=== PATIENT | female | born 1990 | race Caucasian/White ===

== ENCOUNTER → 2020-01-22 18:56 | Outpatient (ROUT) | payer BC, SELFPAY ==
[2020-01-22 20:38] LABS: Urine N gonorrhoeae NOT DETECTED
[2020-01-22 20:41] LABS: Urine Chlamydia NOT DETECTED
== END ==
PROVIDERS: PCP Family Medicine; Visit Provider Obstetrics & Gynecology
DX: Z11.3 Encounter for screening for infections with a predominantly sexual mode of transmission (principal)
CPT/HCPCS: 87491; 87591

== ENCOUNTER → 2020-02-19 12:59 | Outpatient (CLI) | payer BC, SELFPAY ==
[2020-02-19 13:49] LABS: Add Manual Diff / Slide Review NO; Basophils Absolute Auto 100 /uL (0-100); Basophils Percent Auto 0.7 % (0-2); Eosinophils Absolute Auto 100 /uL (0-450); Eosinophils Percent Auto 0.6 % (2-4); Hematocrit 34.5 % (36-46); Hemoglobin 11.8 g/dL (12.0-16.0); Lymphocytes Absolute Auto 2500 /uL (1100-4500); Lymphocytes Percent Auto 21.8 % (25-40); Mean Corpuscular HGB Conc 34.2 % (30-36); Mean Corpuscular Hemoglobin 31.1 PG (26-34); Monocytes Absolute Auto 800 /uL (0-900); Neutrophils Absolute Auto 8100 /uL (1500-7000); Neutrophils Percent Auto 69.9 % (50-75); Platelet Count 362 X10^3/uL (150-400); Red Cell Distribution Width 12.9 % (11.6-14.8); White Blood Cell Count 11.6 X10^3/uL (4.5-11.0)
[2020-02-19 15:00] LABS: Appearance Urine UA CLEAR; Bilirubin Urine UA NEGATIVE (NEGATIVE); Color Urine UA YELLOW; Glucose Urine UA NEGATIVE (Negative); Ketones Urine UA 1+ (NEGATIVE); Leukocyte Esterase Urine UA NEGATIVE (NEGATIVE); Nitrite Urine UA NEGATIVE (Negative); Occult Blood Urine UA NEGATIVE (Negative); Protein Urine UA NEGATIVE (Negative); Urobilinogen Urine UA 0.2 E.U./dL (0.2)
[2020-02-19 17:54] LABS: Hepatitis B Surface Antigen NEGATIVE s/c (NEGATIVE); Rubella Antibody IgG 13.1 IU/mL (>15)
[2020-02-19 18:00] LABS: HIV 1 & 2 Ab/Ag 4th Gen Combo NEGATIVE (NEGATIVE); Hep C Virus Ab w/Reflex Quant NEGATIVE s/c (NEGATIVE)
[2020-02-20 04:36] LABS: RPR Screen Non Reactive (Non Reactive)
[2020-02-20 10:08] LABS: Varicella IgG Antibody 1560 index (Immune >165)
== END ==
PROVIDERS: PCP Family Medicine; Referring Provider Obstetrics & Gynecology; Visit Provider Obstetrics & Gynecology
DX: Z34.01 Encounter for supervision of normal first pregnancy, first trimester (principal)
CPT/HCPCS: 36415; 80055; 81003; 86787; 86803; 86850; 86900; 86901; 87086; 87389

== ENCOUNTER → 2020-03-19 10:55 | Outpatient (CLI) | payer BC, SELFPAY ==
[2020-03-22 20:39] LABS: AFP Value 25.4 ng/mL (.); Gest Age on Col Date 16.7 weeks (.); Gestational Age Ultrasound (.); Insulin Dep Diabetes No (.); OSBR Risk 1IN 10000 (.); Results Report (.); Test Results *Screen Negative* (.)
[2020-03-25 11:46] LABS: PDF SEE EMR
== END ==
PROVIDERS: Referring Provider Obstetrics & Gynecology; Visit Provider Obstetrics & Gynecology
DX: Z34.02 Encounter for supervision of normal first pregnancy, second trimester (principal); Z3A.16 16 weeks gestation of pregnancy
CPT/HCPCS: 36415; 82105

== ENCOUNTER → 2020-04-16 12:03 | Outpatient (CLI) | payer BC, SELFPAY ==
--- NOTE | 2020-04-16 12:04 | DI.US.S_ITS ---
PROCEDURE: US OB >= 14 WEEKS FETUS INDICATIONS: ANATOMY SCAN OUTSIDE/PRIOR DATING DATA: Last menstrual period (LMP): 11/23/2019. LMP-based estimated date of delivery (DIANE): 08/29/2020. First dating scan (date and location): 01/22/2020 Located within [facility]. Estimated date of delivery (DIANE) from first dating scan: 08/31/2020. TECHNIQUE: Real-time scanning was performed of the fetus, with image documentation and biometric measurements. Endovaginal scanning: Not performed. COMPARISON: [facility], , OB <= 14 WEEKS FETUS, 02/19/2020, 11:52. FINDINGS: General: A single living intrauterine gestation is present. Presentation: Breech. Placenta: Placental position is anterior, without previa. Amniotic fluid index: 9.2 cm, normal range is 5-24 cm. heart rate: 157 beats per minute. Maternal cervical canal: 4.7 cm long. Normal lower limit is 2.5 cm. biometrics: Biparietal diameter: 4.67 cm, 20 weeks 1 day Head circumference: 17.8 cm, 20 weeks 2 days Abdominal circumference: 13.5 cm, 19 weeks 0 days Femur length: 3.54 cm, 21 weeks 1 day Estimated gestational age from initial scan: 20 weeks 3 days Composite gestational age from present scan: 20 weeks 1 day Estimated weight and percentile: 329 g, 26 percentile Measurement variability for biometric dating: +/- 7 days from 14 weeks to 15 weeks 6 days gestation, +/- 10 days from 16 weeks to 21 weeks 6 days gestation, +/- 2 weeks from 22 weeks to 27 weeks 6 days gestation, +/- 3 weeks for 28 weeks gestation or later. weight reference: 4500 g or EFW >90/95% is considered macrosomia or large for gestational age. EFW <10% is small for gestational age. EFW 5% or less is considered intra-uterine growth restriction. Anatomic survey: Neuro: Ventricles are non-dilated at less than 10 mm. Cisterna magna is normal at 3-11 mm. Cerebellum is normal in size and morphology. Nuchal skin fold: Normal at less than 6 mm between 14-21 weeks gestational age. Face: Nose and lips, facial profile are normal. Spine: No evidence for spina bifida. Heart: 4-chambered heart is present, with normal ventricular outflow tracts. Diaphragm: Diaphragm is intact. Stomach: Left-sided stomach is present. Kidneys: No hydronephrosis. Normal is less than 5 mm in 2nd trimester, less than 7 mm in 3rd trimester. Cord: 3-vessel cord has orthotopic insertion. Bladder: Normal in size. Extremities: All 4 extremities identified. IMPRESSION: 1. Mena living intrauterine at 20 weeks 1 day based on today's ultrasound. This is concordant with the prior ultrasound. There is expected interval growth. 2. Normal placenta and amniotic fluid. 3. Normal and complete anatomic survey. Dictated by: Tawanda Arteaga M.D. on 04/16/2020 at 15:39 Approved by: Tawanda Arteaga M.D. on 04/16/2020 at 15:54
== END ==
PROVIDERS: PCP Obstetrics & Gynecology; Referring Provider Obstetrics & Gynecology; Visit Provider Obstetrics & Gynecology
DX: Z34.02 Encounter for supervision of normal first pregnancy, second trimester (principal); Z3A.20 20 weeks gestation of pregnancy
CPT/HCPCS: 76811

== ENCOUNTER → 2020-05-14 12:04 | Outpatient (CLI) | payer BC, SELFPAY ==
[2020-05-14 14:14] LABS: Urine N gonorrhoeae NOT DETECTED
[2020-05-14 14:19] LABS: Urine Chlamydia NOT DETECTED
== END ==
PROVIDERS: PCP Family Medicine; Visit Provider Obstetrics & Gynecology
DX: Z34.02 Encounter for supervision of normal first pregnancy, second trimester (principal); Z3A.24 24 weeks gestation of pregnancy
CPT/HCPCS: 87491; 87591

== ENCOUNTER → 2020-06-11 09:41 | Outpatient (CLI) | payer BC, SELFPAY ==
[2020-06-11 11:26] LABS: Hematocrit 34.8 % (36-46); Hemoglobin 11.6 g/dL (12.0-16.0)
[2020-06-11 11:50] LABS: GTT (PREG) 1 Hour PP 50gm Dose 113 mg/dL (76-139)
[2020-06-12 04:08] LABS: Toxoplasma IgG Interp Negative (.); Toxoplasma gohndii IgG <3.0 IU/mL (0.0-7.1)
[2020-06-12 06:10] LABS: HSV Type 1 AB, IgG <0.91 index (0.00-0.90); Toxoplasma gohndii IgG <3.0 IU/mL (0.0-7.1); Toxoplasma gondii IgM <3.0 AU/mL (0.0-7.9)
[2020-06-12 20:08] LABS: HSV I/II IgM <0.91 Ratio (0.00-0.90)
== END ==
PROVIDERS: PCP Family Medicine; Referring Provider Obstetrics & Gynecology; Visit Provider Obstetrics & Gynecology
DX: O35.0XX0 Maternal care for (suspected) central nervous system malformation in fetus, not applicable or unspecified (principal); Z3A.24 24 weeks gestation of pregnancy
CPT/HCPCS: 36415; 82950; 85014; 85018; 86644; 86645; 86694; 86695; 86777; 86778

== ENCOUNTER 2020-07-14 12:03 | Outpatient (CLI) | payer BC, SELFPAY ==
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
== END 2020-07-14 13:00 | disposition home or self-care (01) ==
LOC: LABOR 12:14 → OB 07-15 09:02
PROVIDERS: PCP Family Medicine; Referring Provider Obstetrics & Gynecology; Visit Provider Obstetrics & Gynecology
DX: O36.5930 Maternal care for other known or suspected poor fetal growth, third trimester, not applicable or unspecified (principal); Z3A.33 33 weeks gestation of pregnancy
CPT/HCPCS: 59025; G0378; G0379

== ENCOUNTER 2020-07-21 10:52 | Outpatient (CLI) | payer BC, SELFPAY | END 2020-07-21 11:55 | disposition home or self-care (01) | LOC: LABOR 11:22 → OB 15:30 | PROVIDERS: PCP Family Medicine; Referring Provider Obstetrics & Gynecology; Visit Provider Obstetrics & Gynecology | DX: O36.5930 Maternal care for other known or suspected poor fetal growth, third trimester, not applicable or unspecified (principal); Z3A.34 34 weeks gestation of pregnancy | CPT/HCPCS: 59025; G0378; G0379 ==

== ENCOUNTER → 2020-07-29 16:43 | Outpatient (CLI) | payer BC, SELFPAY ==
[2020-07-30 11:14] LABS: Strep Grp B PCR POS for Grp B Strep
== END ==
PROVIDERS: PCP Family Medicine; Visit Provider Obstetrics & Gynecology
DX: Z34.90 Encounter for supervision of normal pregnancy, unspecified, unspecified trimester (principal); Z3A.35 35 weeks gestation of pregnancy
CPT/HCPCS: 87653

== ENCOUNTER 2020-08-01 10:42 | Outpatient (CLI) | payer BC, SELFPAY | END 2020-08-01 11:12 | disposition home or self-care (01) | LOC: LABOR 11:02 → OB 12:32 | PROVIDERS: PCP Family Medicine; Referring Provider Obstetrics & Gynecology; Visit Provider Obstetrics & Gynecology | DX: O36.5930 Maternal care for other known or suspected poor fetal growth, third trimester, not applicable or unspecified (principal); Z3A.36 36 weeks gestation of pregnancy | CPT/HCPCS: 59025; G0378; G0379 ==

== ENCOUNTER 2020-08-04 11:38 | Outpatient (CLI) | payer BC, SELFPAY | END 2020-08-04 12:18 | disposition home or self-care (01) | LOC: LABOR 12:17 → OB 08-05 07:46 | PROVIDERS: PCP Family Medicine; Referring Provider Obstetrics & Gynecology; Visit Provider Obstetrics & Gynecology | DX: O36.5930 Maternal care for other known or suspected poor fetal growth, third trimester, not applicable or unspecified (principal); Z3A.36 36 weeks gestation of pregnancy | CPT/HCPCS: 59025; G0378; G0379 ==

== ENCOUNTER 2020-08-12 12:45 | Outpatient (CLI) | payer BC, SELFPAY | END 2020-08-12 13:10 | disposition home or self-care (01) | LOC: LABOR 12:48 → OB 08-13 07:35 | PROVIDERS: PCP Family Medicine; Referring Provider Obstetrics & Gynecology; Visit Provider Obstetrics & Gynecology | DX: O36.5930 Maternal care for other known or suspected poor fetal growth, third trimester, not applicable or unspecified (principal); Z3A.37 37 weeks gestation of pregnancy | CPT/HCPCS: 59025; G0378; G0379 ==

== ENCOUNTER 2020-08-19 11:28 | Outpatient (CLI) | payer BC, SELFPAY | END 2020-08-19 12:28 | disposition home or self-care (01) | LOC: OB 08-20 08:23 | PROVIDERS: PCP Family Medicine; Referring Provider Obstetrics & Gynecology; Visit Provider Obstetrics & Gynecology | DX: O36.5930 Maternal care for other known or suspected poor fetal growth, third trimester, not applicable or unspecified (principal); Z3A.38 38 weeks gestation of pregnancy | CPT/HCPCS: 59025; G0378; G0379 ==

== ENCOUNTER 2020-08-20 18:54 | Inpatient (IN) | payer BC, SELFPAY ==
[2020-08-20] MEDS: DINOPROSTONE VAG (CERVIDIL) 10 MG VAG (19:45)
[2020-08-20 19:47] LABS: Add Manual Diff / Slide Review NO; Basophils Absolute Auto 100 /uL (0-100); Basophils Percent Auto 0.8 % (0-2); Eosinophils Absolute Auto 0 /uL (0-450); Eosinophils Percent Auto 0.3 % (2-4); Hematocrit 32.6 % (36-46); Lymphocytes Absolute Auto 2500 /uL (1100-4500); Lymphocytes Percent Auto 22.9 % (25-40); Mean Corpuscular HGB Conc 33.9 % (30-36); Mean Corpuscular Hemoglobin 29.6 PG (26-34); Mean Corpuscular Volume 87.4 fL (80-100); Monocytes Absolute Auto 900 /uL (0-900); Monocytes Percent Auto 8.1 % (3-14); Neutrophils Absolute Auto 7600 /uL (1500-7000); Neutrophils Percent Auto 67.9 % (50-75); Platelet Count 350 X10^3/uL (150-400); Red Blood Cell Count 3.73 X10^6/uL (4.0-5.2); Red Cell Distribution Width 14.7 % (11.6-14.8); White Blood Cell Count 11.1 X10^3/uL (4.5-11.0)
[2020-08-20 20:04] LABS: COVID19 -Nasal RAPID Negative (Negative)
[2020-08-20 21:46] VITALS: BP 139/82
[2020-08-20] MEDS: ZOLPIDEM 5 MG TABLET PO (23:28)
[2020-08-20] MEDS: CALCIUM CARBONATE 500 MG TAB 1000 MG PO (23:28)
[2020-08-21] MEDS: LACTATED RINGERS 1,000 ML 100 ML IV ×3 (08:52→23:06)
[2020-08-21] MEDS: PENICILLIN G POTASSIUM 5,000,000 UNIT in DEXTROSE 5% IN WATER 250 ML IV (08:52)
[2020-08-21] MEDS: OXYTOCIN PREMIX 30 UNIT/500 ML PLAST..BAG IV (08:53)
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
--- NOTE | 2020-08-21 10:30 | PM.PREOP ---
Pre-operative Note COVID-19 COVID-19 status: Negative Result date/Date tested (Pos, Neg/Pending): 08/20/20 Interval Note History & Physical reviewed/Exam performed by Physician: Yes Changes to H&P: No H&P completed within 30 days and has changed as indicated here:: 08/21/20
[2020-08-21] MEDS: CEFAZOLIN 2 GM/100 ML FROZ.PIGGY IV (10:39)
--- NOTE | 2020-08-21 10:53 | SUR.OPER ---
Supine on Padded OR bed, head on pillow, safety belt at thigh, arms secured on padded arm boards at <90 degrees abduction. Bump under right buttock. Legs uncrossed with pillow under knees, gel pad to heels, tape over blanket to lower legs.
--- NOTE | 2020-08-21 11:07 | SUR.OPER ---
Viable female baby born at 1057, delivery of placenta, cord blood tubes X2 and placenta given to Noel Church&Stanford RN. Per RT score 8-9.
[2020-08-21 11:38] VITALS: BP 90/72; PULSE 54; RESP 13; TEMP 36.8; O2SAT 100
--- NOTE | 2020-08-21 11:46 | PM.GYNOP.1 ---
Operative Date/Time/Diagnoses Date of procedure: 08/21/20 Time of procedure: 11:46 Pre-op diagnosis: EGA 39 wks Intolerance of labor IUGR Post-op diagnosis: same Procedure & Clinicians Procedure: Procedures Operation Date: 08/21/20 09:30 Actual Procedures Side Surgeon p Section Mary Granger MD Indications: 39 weeks gestation Intolerance of Labor IUGR Surgeon: Mary Granger Supervisor Hot Dip Tinning: Reba Avina Anesthesia Type: Spinal (with Duramorph) Operative Notes Findings: Live female Double nuchal cord Normal uterus, tubes and ovaries Closure Type: primary Specimen(s): other (Cord bloods, cord pH, placenta to path) Applied: catheter (To continuous drainage) Estimated blood loss (mL): 300 Blood products transfused: none Procedure in detail: The patient was taken to the operating room where she was placed in the seated position. Spinal anesthesia with Duramorph was administered. She was then placed in the dorsal supine position with a leftward tilt. She was prepped and draped in the usual sterile fashion. A timeout was performed. After spinal analgesia was found to be adequate, a Pfannenstiel skin incision was made 2 fingerbreadths above the pubic symphysis and carried through to the underlying layer fascia. The fascia was nicked in the midline, and the incision extended bilaterally with the Camacho scissors. The superior aspect of the fascial incision was grasped with a Oatman clamps, elevated, and the underlying rectus muscles dissected off sharply and bluntly. Attention was then turned to the inferior aspect of this incision which in a similar fashion was grasped with a Oatman clamps, elevated, and the underlying rectus muscles dissected off sharply and bluntly. The rectus muscles were in the midline. The peritoneum was identified, grasped between 2 hemostats, and entered sharply with the Metzenbaum scissors. This incision was extended superiorly and inferiorly with good visualization of the bladder. The bladder blade was inserted. The vesicouterine peritoneum was identified, grasped with the pickup, and entered sharply with the Metzenbaum scissors. This incision was extended bilaterally, and the bladder flap was created digitally. The bladder blade was reinserted. The lower uterine segment was incised in a transverse fashion with the scalpel. Upon entering the amniotic sac there was a small amount of clear amniotic fluid. A double nuchal cord was reduced. The infant's head was delivered without difficulty. The nose and mouth were suctioned with bulb suction. The remainder of the body delivered without difficulty. The cord was double clamped and cut. The infant was handed off to waiting RN and RT. Cord bloods were obtained. A piece of cord was sent for pH. The placenta was delivered manually. The uterus was cleared of all clots and debris. The uterine incision was repaired with #1 chromic in a running interlocking fashion, and a second layer the same suture was used for an imbricating layer. The stasis was achieved. The tubes and ovaries were examined and were found to be normal. The gutters were cleared of all clots and debris. The bladder flap was reapproximated using 2-0 Vicryl in a running fashion. The parietal peritoneum was closed using 2-0 Vicryl in a running fashion. The fascia was reapproximated using 0 Vicryl in a running fashion. Subcutaneous layer was copiously irrigated with warm normal saline. Five simple interrupted sutures of 3-0 Vicryl were placed to reapproximate the subcutaneous layer. The skin was closed with 4-0 Biosynl in a subcuticular fashion. Steri-Strips were placed. An Aquacel dressing was placed. The uterus was expressed of a small amount of old blood. Sponge, lap, and instrument counts were correct x-2. The patient tolerated the procedure well, and was taken to PACU in stable condition. Complications: none Post-operative Condition: stable Disposition: PACU Plan for aftercare: To the Center after Recovery
[2020-08-21 11:47] VITALS: BP 105/51; PULSE 59; RESP 16; O2SAT 98
[2020-08-21 11:52] VITALS: BP 113/60; PULSE 54; RESP 16; O2SAT 97
[2020-08-21 11:57] VITALS: BP 106/62; PULSE 62; RESP 17; TEMP 36.7; O2SAT 98
[2020-08-21 12:02] VITALS: BP 107/63; PULSE 56; RESP 16; O2SAT 97
[2020-08-21 12:07] VITALS: BP 107/63; PULSE 55; RESP 16; O2SAT 96
[2020-08-21] MEDS: diphenhydrAMINE 50 MG/ML VIAL 25 MG IV (14:20)
[2020-08-21] MEDS: LANOLIN OINT 7 GM 1 APPLIC TOP (14:21)
[2020-08-21] MEDS: KETOROLAC 30 MG/ML VIAL IV ×2 (18:07→23:30)
[2020-08-22] MEDS: KETOROLAC 30 MG/ML VIAL IV (05:30)
[2020-08-22 06:43] LABS: Hematocrit 27.7 % (36-46); Hemoglobin 9.3 g/dL (12.0-16.0)
[2020-08-22] MEDS: DOCUSATE 250 MG CAPSULE PO (08:14)
[2020-08-22] MEDS: PRENATAL VIT,CALC/IRON/FOLIC 1 TABLET 1 TAB PO (08:14)
[2020-08-22] MEDS: ACETAMINOPHEN 325 MG TABLET 650 MG PO ×3 (11:15→23:25)
[2020-08-22] MEDS: IBUPROFEN 600 MG TABLET PO ×3 (11:16→23:25)
[2020-08-22] MEDS: LANOLIN OINT 7 GM 1 APPLIC TOP (11:17)
[2020-08-22 16:00] VITALS: BP 127/87; PULSE 61; RESP 16; TEMP 36.5
--- NOTE | 2020-08-22 16:20 | P.PNOB_ITS ---
Subjective - OB Subjective Patient comments: no complaints, pain well controlled, tolerating diet and flatus present baby status: doing well and nursing well [place] feeding status: exclusively breast feeding Date Patient Seen: 08/22/20 Time Patient Seen: 16:20 Interval history: Patient is a 30-year-old 1 para 1 postop day # 1 status post primary low-transverse section due to intolerance of labor Exam Vital Signs (past 8 hours): Oxygen Delivery Method Room Air Oxygen Flow Rate 0 Narrative Exam Narrative: Generally: Patient is sitting up in bed, no acute distress Lungs: Clear to auscultation bilaterally Cardiovascular: Regular rate and rhythm Fundus: Firm at U -2 Incision: Clean dry and intact with Aquacel dressing Extremities: Trace edema, negative Homans Objective Labs Result Diagrams: 08/22/20 06:35 Labs: Laboratory Results - last 24 hr 08/21/20 08/22/20 11:05 06:35 Hgb 9.3 L Hct 27.7 L Cord ABG pH 7.27 Cord ABG pCO2 52.9 Cord ABG pO2 11 Cord ABG HCO3 24.1 Cord ABG Base Excess -3 Cord ABG O2 Sat 9 Cord VBG pH 7.339 Cord VBG pCO2 39.7 Cord VBG pO2 20 Cord VBG HCO3 21.3 Cord VBG Base Excess -4.00 Cord VBG O2 Sat 30 Assessment & Plan Plan day: 1 plan OB: routine postop care Time Spent With Patient Time: Total time spent is greater than 50% in coordination of care (as documented) at patient's floor/unit and/or counseling patient: Time with patient: 15-24 minutes
[2020-08-23] MEDS: IBUPROFEN 600 MG TABLET PO ×2 (05:37→11:19)
[2020-08-23] MEDS: ACETAMINOPHEN 325 MG TABLET 650 MG PO ×2 (05:37→11:19)
[2020-08-23] MEDS: PRENATAL VIT,CALC/IRON/FOLIC 1 TABLET 1 TAB PO (09:24)
[2020-08-23] MEDS: DOCUSATE 250 MG CAPSULE PO (09:24)
--- NOTE | 2020-08-23 10:57 | P.DS_ITS ---
Discharge Providers Provider Date of admission: 08/20/20 18:54 Discharge Date: 08/23/20 Primary care physician: Jeannie Cooper MD Consults: 08/21/20 13:58 Consult to Supervisor [employer] Processing Routine Comment: Discharge provider: Mary Granger MD Summary Hospital Course Date Patient Seen: 08/23/20 Time Patient Seen: 10:58 Diagnoses: Estimated gestational age of 39 weeks Intrauterine growth restriction Cervidil cervical ripening Pitocin induction of labor intolerance of labor Double nuchal cord Primary low-transverse section Hospital Course: Patient is a 30-year-old 1 para 1 who presented at an estimated gestational age of 39 weeks for Cervidil cervical ripening and Pitocin induction of labor secondary to intrauterine growth restriction. The patient received 1 dose of Cervidil on August 21, 2020. On the morning of August 22, 2020 she was started on Pitocin, due to favorable cervix. On very minimal doses of Pi tocin, 2-3 ada international units per minute, the baby had deep variable decelerations with its heart rate. A decision was made to proceed with primary low-transverse section. Peripartum Data Delivery Method: Emergency Section Laceration Description: None Episiotomy description: None Procedures: Cervidil cervical ripening Pitocin induction of labor Spinal anesthesia Primary low-transverse section complications: none Hubert 1: Gender: Female Disposition of : home Status at Discharge Cognitive/behavioral status at discharge: oriented Functional status at discharge: independent ambulation Overall status at discharge: patient is progressing back to baseline Time Spent with Patient Time attestation: Total time spent providing and/or coordinating discharge services: Time spent: Less than 30 minutes Objective Labs Result Diagrams: 08/22/20 06:35 Exam Vital Signs (past 8 hours): Oxygen Delivery Method Room Air Oxygen Flow Rate 0 Narrative Exam Narrative: Generally: Patient is sitting up in bed, no acute distress Lungs: Clear to auscultation bilaterally Cardiovascular: Regular rate and rhythm Fundal height: U -2 Incision: Clean dry and intact with Aquacel dressing Extremities: 1+ edema, negative Homans Discharge Plan Discharge Plan Patient Disposition: Home Provider Discharge Comment: Call with fever, chills, redness or drainage around the incision, or bleeding vaginally more than a pad in an hour Ibuprofen 600 mg every 6 hours Tylenol 650 mg every 6 hours Oxycodone 5 mg every 3-4 hours as needed Stool softners as needed Continue vitamins Elevate legs Discharge orders & Medications Prescriptions: New oxycodone 5 mg tablet 5 mg PO Q4H PRN (Reason: pain) Qty: 20 RF: 0 Continued prenat.vits,jack,gfk-chji-deaxd Tablet 2 tab PO DAILY RF: 0 Discontinued famotidine [Pepcid] 20 mg tablet 20 mg PO BID Qty: 90 RF: 2 Follow up/Referrals: Jeannie Cooper MD [Primary Care Provider] - Mary Granger MD [Physician] - 2 Weeks (My office will call to set up 2 wk Telehealth visit and 6 wk PP visit ) Diet/Activity/Treatments Diet: Regular Activity: No heavy lifting, nothing more than baby or gallon of milk Skin/Wound/Dressing Care Report to your healthcare provider any signs of infection, such as:: chills, fever, increased pain, unusual drainage and unusual redness Dressing: You or Dr. Cooper may remove the brown dressing after 1 week. Leave steri strips in place Visit Report/Discharge Packet Instructions: DI for , DI for Prescription Opioid Use Discharge Data Primary Care Provider: Jeannie Cooper
[2020-08-23] MEDS: MEASLES,MUMPS,RUBELLA VACC/PF 0.5 ML VIAL SUBCUT (12:01)
== END 2020-08-23 12:12 | disposition home or self-care (01) | DRG 788 ==
PROVIDERS: Admitting Provider Obstetrics & Gynecology; PCP Family Medicine; Referring Provider Obstetrics & Gynecology; Visit Provider Obstetrics & Gynecology
PROC: 10D00Z1 Extraction of Products of Conception, Low, Open Approach (ICD-10-PCS; CPT 59514; principal; 2020-08-21 09:30)
DX: O36.5930 Maternal care for other known or suspected poor fetal growth, third trimester, not applicable or unspecified (principal); O76 Abnormality in fetal heart rate and rhythm complicating labor and delivery; Z3A.39 39 weeks gestation of pregnancy; Z37.0 Single live birth; O99.824 Streptococcus B carrier state complicating childbirth; Z20.822 Contact with and (suspected) exposure to COVID-19; O69.81X0 Labor and delivery complicated by cord around neck, without compression, not applicable or unspecified
CPT/HCPCS: 36415; 59025; 59050; 59200; 59510; 59514; 82803; 85014; 85018; 85025; 86850; 86900; 86901; 87635; C9803; G0379; J0690; J1200; J1885; J2274; J2405; J2540; J2590

== ENCOUNTER → 2021-04-17 09:33 | Outpatient (CLI) | payer BC, SELFPAY ==
[2021-04-17 20:13] LABS: COVID19 - ORCAS (NP or Nasal) Negative (Negative)
== END ==
PROVIDERS: PCP Family Medicine; Referring Provider Family Medicine; Visit Provider Family Medicine
DX: Z20.822 Contact with and (suspected) exposure to COVID-19 (principal)
CPT/HCPCS: U0003

== ENCOUNTER → 2022-04-14 12:12 | Outpatient (CLI) | payer BC, SELFPAY ==
--- NOTE | 2022-04-14 12:13 | DI.US.S_ITS ---
PROCEDURE: US PELVIC COMPLETE INDICATIONS: FU right ovarian cyst TECHNIQUE: Real-time scanning was performed of the pelvic organs, with image documentation. Additional endovaginal scanning was necessary due to incomplete visualization of the adnexal and endometrial structures by transabdominal scanning. COMPARISON: None. FINDINGS: Uterus: Uterus is anteverted and normal in size at 7.8 by 3.5 x 4.7 cm cm. The myometrium is homogeneous. The endometrium measures 2.3 mm combined thickness. Nabothian cysts are seen in the cervix. Ovaries: The right ovary measures 3.1 x 1.3 x 2.3 cm. The left ovary measures 2.9 x 1.4 x 1.7 cm. Less than 12 follicles are seen in each ovary. A previously described right ovarian cyst is not seen. There are subcentimeter normal appearing follicles in the left ovary. Other: No pathologic free abdominal or pelvic fluid. IMPRESSION: Normal pelvic ultrasound. We strive to produce accurate, complete, and clear reports of imaging services. To assist us in improving patient care, this report was composed using standard report templates and voice recognition software. Therefore, it may contain abnormal punctuation, insertions and/or omissions. Occasional wrong-word or sound-alike substitutions may occur. Though we review the report and make efforts to correct it, we do recommend that the report be read carefully in proper context to recognize any text inaccuracies. Dictated by: Cosme Levy M.D. on 04/14/2022 at 14:55 Approved by: Cosme Levy M.D. on 04/14/2022 at 14:59
== END ==
PROVIDERS: Referring Provider Obstetrics & Gynecology; Visit Provider Obstetrics & Gynecology
DX: N83.201 Unspecified ovarian cyst, right side (principal)
CPT/HCPCS: 76830; 76856; 93976

== ENCOUNTER → 2022-06-28 10:50 | Outpatient (CLI) | payer BC, SELFPAY | PROVIDERS: Referring Provider Obstetrics & Gynecology; Visit Provider Obstetrics & Gynecology | DX: Z34.81 Encounter for supervision of other normal pregnancy, first trimester (principal); Z36.0 Encounter for antenatal screening for chromosomal anomalies | CPT/HCPCS: 36415 ==

== ENCOUNTER → 2022-07-14 11:16 | Outpatient (CLI) | payer BC, SELFPAY ==
[2022-07-14 13:08] LABS: Add Manual Diff / Slide Review NO; Basophils Absolute Auto 100 /uL (0-100); Basophils Percent Auto 0.5 % (0-2); Eosinophils Absolute Auto 0 /uL (0-450); Eosinophils Percent Auto 0.4 % (2-4); Hematocrit 36.5 % (36-46); Hemoglobin 12.3 g/dL (12.0-16.0); Lymphocytes Absolute Auto 2000 /uL (1100-4500); Lymphocytes Percent Auto 17.7 % (25-40); Mean Corpuscular HGB Conc 33.8 % (30-36); Mean Corpuscular Volume 91.8 fL (80-100); Monocytes Absolute Auto 500 /uL (0-900); Monocytes Percent Auto 4.7 % (3-14); Neutrophils Absolute Auto 8600 /uL (1500-7000); Neutrophils Percent Auto 76.7 % (50-75); Platelet Count 331 X10^3/uL (150-400); Red Blood Cell Count 3.97 X10^6/uL (4.0-5.2); Red Cell Distribution Width 12.9 % (11.6-14.8); White Blood Cell Count 11.2 X10^3/uL (4.5-11.0)
[2022-07-14 15:46] LABS: Appearance Urine UA CLEAR; Bilirubin Urine UA NEGATIVE (NEGATIVE); Color Urine UA YELLOW; Glucose Urine UA NEGATIVE (Negative); Ketones Urine UA NEGATIVE (NEGATIVE); Leukocyte Esterase Urine UA NEGATIVE (NEGATIVE); Nitrite Urine UA NEGATIVE (Negative); Occult Blood Urine UA NEGATIVE (Negative); Protein Urine UA NEGATIVE (Negative); Specific Gravity Urine UA <=1.005 (1.000-1.035); Urobilinogen Urine UA 0.2 E.U./dL (0.2)
[2022-07-14 15:57] LABS: pH Urine UA 6.5 (4.5-8.0)
[2022-07-14 17:29] LABS: Hepatitis B Surface Antigen NEGATIVE s/c (NEGATIVE)
[2022-07-14 17:47] LABS: HIV 1 & 2 Ab/Ag 4th Gen Combo NEGATIVE (NEGATIVE); Hep C Virus Ab w/Reflex Quant NEGATIVE s/c (NEGATIVE)
[2022-07-15 07:11] LABS: RPR Screen Non Reactive (Non Reactive); Varicella IgG Antibody 1623 index (Immune >165)
== END ==
PROVIDERS: Referring Provider Obstetrics & Gynecology; Visit Provider Obstetrics & Gynecology
DX: Z34.81 Encounter for supervision of other normal pregnancy, first trimester (principal)
CPT/HCPCS: 36415; 80055; 81003; 86787; 86803; 86850; 86900; 86901; 87086; 87389

== ENCOUNTER → 2022-08-11 14:40 | Outpatient (CLI) | payer BC, SELFPAY ==
[2022-08-11 20:46] LABS: Appearance Urine UA SL CLOUDY; Bilirubin Urine UA NEGATIVE (NEGATIVE); Color Urine UA YELLOW; Glucose Urine UA NEGATIVE (Negative); Ketones Urine UA NEGATIVE (NEGATIVE); Leukocyte Esterase Urine UA TRACE (NEGATIVE); Nitrite Urine UA NEGATIVE (Negative); Occult Blood Urine UA NEGATIVE (Negative); Protein Urine UA NEGATIVE (Negative); Urobilinogen Urine UA 0.2 E.U./dL (0.2)
[2022-08-11 21:02] LABS: Bacteria Urine Few (2-10); RBC Urine 0-1/HPF (0-5/HPF); Squamous Epithelial Cell Urine 5-10 /HPF (0-5/HPF); Transitional Epi Cells Urine 1-5/HPF (0-5/HPF); WBC Urine 0-1/HPF (0-5/HPF)
[2022-08-13 20:41] LABS: AFP Value 27.7 ng/mL (.); Gest Age on Col Date 17.9 weeks (.); Insulin Dep Diabetes No (.); OSBR Risk 1IN 10000 (.); Results Report (.); Test Results *Screen Negative* (.)
== END ==
PROVIDERS: Referring Provider Obstetrics & Gynecology; Visit Provider Obstetrics & Gynecology
DX: Z34.82 Encounter for supervision of other normal pregnancy, second trimester (principal); Z3A.16 16 weeks gestation of pregnancy
CPT/HCPCS: 36415; 81001; 82105; 87086

== ENCOUNTER → 2022-09-08 12:17 | Outpatient (CLI) | payer BC, SELFPAY ==
--- NOTE | 2022-09-08 12:18 | DI.US.S_ITS ---
PROCEDURE: US OB >= 14 WEEKS FETUS INDICATIONS: ANATOMY OUTSIDE/PRIOR DATING DATA: Last menstrual period (LMP): 04/08/2022. LMP-based estimated date of delivery (DIANE): 01/13/2023. First dating scan (date and location): 06/11/2022. Estimated date of delivery (DIANE) from first dating scan: 01/15/2023. The calculations are made using the clinical DIANE of 01/13/2023. TECHNIQUE: Real-time scanning was performed of the fetus, with image documentation and biometric measurements. Endovaginal scanning: Not performed COMPARISON: [facility], , OB >= 14 WEEKS FETUS, 08/12/2020, 12:05. FINDINGS: General: A single living intrauterine gestation is present. Presentation: Transverse. Placenta: Placental position is anterior . Placenta terminates at or covers the internal os Amniotic fluid index: 16.2 cm, normal range is 5-24 cm. Single deepest vertical pocket is 5.4 cm. heart rate: 137 beats per minute. Maternal cervical canal: 5.4 cm long. Normal lower limit is 2.5 cm. biometrics: Biparietal diameter: 5.2 cm 21 weeks 6 days Head circumference: 19.5 cm 21 weeks 5 days Abdominal circumference: 17.1 cm 22 weeks 1 day Femur length: 3.7 cm 21 weeks 5 days estimated gestational age: 21 weeks 6 days Composite gestational age from present scan: 21 weeks 6 days Estimated weight and percentile: 459 g, 46th percentile Anatomic survey: Neuro: Ventricles are non-dilated at less than 10 mm. Cisterna magna is normal at 3-11 mm. Cerebellum is normal in size and morphology. Nuchal skin fold: Normal at less than 6 mm between 14-21 weeks gestational age. Face: Nose and lips, facial profile are normal. Spine: No evidence for spina bifida. Heart: 4-chambered heart is present, with normal ventricular outflow tracts. Diaphragm: Diaphragm is intact. Stomach: Left-sided stomach is present. Kidneys: No hydronephrosis. Normal is less than 5 mm in 2nd trimester, less than 7 mm in 3rd trimester. Cord: 3-vessel cord has orthotopic insertion. Bladder: Normal in size. Extremities: All 4 extremities identified. IMPRESSION: 1. Single living intrauterine . 2. Normal 2nd trimester anatomy survey. No anomalies detected at this time. 3. Placenta previa. Recommend follow-up transvaginal ultrasound at or before 32 weeks to assess for resolution and to exclude Vasa previa. We strive to produce accurate, complete, and clear reports of imaging services. To assist us in improving patient care, this report was composed using standard report templates and voice recognition software. Therefore, it may contain abnormal punctuation, insertions and/or omissions. Occasional wrong-word or sound-alike substitutions may occur. Though we review the report and make efforts to correct it, we do recommend that the report be read carefully in proper context to recognize any text inaccuracies. Dictated by: Blayne Garcia M.D. on 09/08/2022 at 20:10 Approved by: Blayne Garcia M.D. on 09/08/2022 at 20:16
== END ==
PROVIDERS: PCP Family Medicine; Referring Provider Obstetrics & Gynecology; Visit Provider Obstetrics & Gynecology
DX: Z34.82 Encounter for supervision of other normal pregnancy, second trimester (principal); Z3A.21 21 weeks gestation of pregnancy
CPT/HCPCS: 76811

== ENCOUNTER → 2022-10-01 08:31 | Outpatient (CLI) | payer BC, SELFPAY ==
[2022-10-01 10:00] LABS: Hematocrit 30.7 % (36-46); Hemoglobin 10.7 g/dL (12.0-16.0)
[2022-10-01 12:36] LABS: GTT (PREG) 1 Hour PP 50gm Dose 89 mg/dL (76-139)
== END ==
PROVIDERS: PCP Family Medicine; Referring Provider Obstetrics & Gynecology; Visit Provider Obstetrics & Gynecology
DX: Z34.82 Encounter for supervision of other normal pregnancy, second trimester (principal); Z3A.26 26 weeks gestation of pregnancy
CPT/HCPCS: 36415; 82950; 85014; 85018

== ENCOUNTER → 2022-12-21 11:18 | Outpatient (CLI) | payer BC, SELFPAY ==
[2022-12-22 11:08] LABS: Strep Grp B PCR POS for Grp B Strep
== END ==
PROVIDERS: PCP Family Medicine; Visit Provider Obstetrics & Gynecology
DX: Z34.83 Encounter for supervision of other normal pregnancy, third trimester (principal); Z3A.37 37 weeks gestation of pregnancy
CPT/HCPCS: 87653

== ENCOUNTER 2023-01-06 05:47 | Inpatient (IN) | payer BC, SELFPAY ==
[2023-01-06] MEDS: LACTATED RINGERS 1,000 ML 999 ML IV ×2 (06:20→08:30)
[2023-01-06 06:30] LABS: Add Manual Diff / Slide Review NO; Basophils Absolute Auto 100 /uL (0-100); Basophils Percent Auto 1.2 % (0-2); Eosinophils Absolute Auto 100 /uL (0-450); Eosinophils Percent Auto 0.9 % (2-4); Hematocrit 34.3 % (36-46); Hemoglobin 11.8 g/dL (12.0-16.0); Lymphocytes Absolute Auto 2600 /uL (1100-4500); Lymphocytes Percent Auto 25.3 % (25-40); Mean Corpuscular HGB Conc 34.5 % (30-36); Mean Corpuscular Hemoglobin 30.9 PG (26-34); Mean Corpuscular Volume 89.7 fL (80-100); Monocytes Absolute Auto 700 /uL (0-900); Monocytes Percent Auto 6.7 % (3-14); Neutrophils Absolute Auto 6900 /uL (1500-7000); Neutrophils Percent Auto 65.9 % (50-75); Platelet Count 298 X10^3/uL (150-400); Red Blood Cell Count 3.83 X10^6/uL (4.0-5.2); Red Cell Distribution Width 13.8 % (11.6-14.8); White Blood Cell Count 10.4 X10^3/uL (4.5-11.0)
[2023-01-06 06:58] VITALS: BP 131/79
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
--- NOTE | 2023-01-06 07:33 | PM.PREOP ---
Pre-operative Note COVID-19 Criteria for continued procedure: Non-surgical alternatives not available or appropriate per current SOC Interval Note History & Physical reviewed/Exam performed by Physician: Yes Changes to H&P: No H&P completed within 30 days and has changed as indicated here:: 01/06/23
[2023-01-06] MEDS: CITRIC ACID/SODIUM CITRATE 15 ML SOLUTION 30 ML PO (07:36)
[2023-01-06] MEDS: CEFAZOLIN 2 GM/100 ML PREMIX 100 ML IV (07:50)
--- NOTE | 2023-01-06 08:03 | SUR.OPER ---
Supine on padded OR bed, head on pillow, arms secured on padded arm boards at <90 degrees abduction, legs uncrossed, safety belt at thigh, tape over blanket over lower legs.
[2023-01-06 09:05] VITALS: BP 114/57; PULSE 67; RESP 16; TEMP 36.2; O2SAT 98
[2023-01-06 09:10] VITALS: BP 116/57; PULSE 69; RESP 16; O2SAT 98
--- NOTE | 2023-01-06 09:17 | P.OP_ITS ---
Operative Date/Time/Diagnoses Date of procedure: 01/06/23 Time of procedure: 09:17 Pre-op diagnosis: Thirty-nine weeks gestation Previous section Post-op diagnosis: same Procedure & Clinicians Procedure: Repeat low-transverse section Same procedure as scheduled: Yes Indications: 39 weeks gestation Previous section Surgeon: Mary Rayo Yes if Unassisted: No Blast Furnace Tender: Yuki Vickers Reason for Blast Furnace Tender: The commissary assistant was necessary to retract upon entry into the abdomen and uterus. She assisted with delivery of the with fundal pressure. She assisted with closure with retraction and clipping of suture. She closed the contralateral fascia. Anesthesia Type: Spinal (With Duramorph) Operative Notes Findings: Live male infant in the FITO presentation Normal uterus, tubes, and ovaries Clear amniotic fluid Very calcified placenta Closure Type: primary Specimen(s): cord blood and placenta Intraoperative meds administered: Duramorph, Ketorolac and Pitocin Applied: Catheter (To continuous drainage) Estimated Blood Loss (mL): 250 Blood products transfused: none Procedure in detail: The patient was taken to the operating room where she was placed in the seated position. Spinal anesthesia with Duramorph was administered. The patient was then placed in the dorsal supine position with a leftward tilt. She was prepped and draped in the usual sterile fashion. A timeout was performed. After spinal analgesia was found to be adequate, a Pfannenstiel skin incision was made t hrough the previous incision and carried through to the underlying layer fascia. The fascia was nicked in the midline, and the incision extended bilaterally with the Camacho scissors. The superior aspect of the fascial incision was grasped with a Antoni clamps, elevated, and the underlying rectus muscles dissected off sharply and bluntly. Attention was then turned to the inferior aspect of this incision which in a similar fashion was grasped with a Damascus clamps, elevated, and the underlying rectus muscles dissected off sharply and bluntly. The rectus muscles were in the midline. The peritoneum was identified, grasped between 2 hemostats, and entered sharply with the Metzenbaum scissors. This incision was extended superiorly and inferiorly with good visualization of the bladder. The bladder blade was inserted. The vesicouterine peritoneum was identified, grasped with the pickup, and entered sharply with the Metzenbaum scissors. This incision was extended bilaterally, and the bladder flap was created digitally. The bladder blade was reinserted. The lower uterine segment was incised in a transverse fashion with the scalpel. Upon entering the amniotic sac there was moderate amount of clear amniotic fluid. The 's head was delivered without difficulty. The nose and mouth were suctioned with bulb suction. The remainder of the body delivered without difficulty. A nuchal cord x1 was reduced. The cord was double clamped and cut after 1 minute. The infant was handed off to waiting RN and RT. The placenta was delivered by expression. The uterus was cleared of all clots and debris. The uterine incision was repaired with #1 chromic in a running interlocking fashion, and a second layer the same suture was used for an imbricating layer. Hemostasis was achieved. The tubes and ovaries were examined and were found to be normal. The gutters were cleared of all clots and debris. The bladder flap was reapproximated using 2-0 Vicryl in a running fashion. The parietal peritoneum was closed using 2-0 Vicryl in a running fashion. The fascia was reapproximated using 0 Vicryl in a running fashion. The subcutaneous layer was copiously irrigated with warm normal saline. 5 simple interrupted sutures of 3-0 Vicryl were placed to reapproximate the subcutaneous layer. The skin was closed with 4-0 Monocryl in a subcuticular fashion. Steri-Strips were placed. An Aquacel dressing was placed. The uterus was expressed of a small amount of old blood. Sponge, lap, and instrument counts were correct x-2. The patient tolerated the procedure well, and was taken to PACU in stable condition. Complications: none Baby 1: Infant Gender: Male Presentation: vertex Position: Left Occiput Anterior Placental Delivery Description: Expressed Cord Vessel Description: 3 Vessels, Nuchal Cord (x 1), Reduced and Clamped/Cut (after 1 minute) score (1 min): 9 score (5 min): 9 Post-operative Condition: stable Disposition: PACU Aftercare: routine postop
[2023-01-06 09:18] VITALS: BP 116/57; PULSE 78; RESP 16; TEMP 36.2; O2SAT 98
[2023-01-06 11:45] LABS: Add Manual Diff / Slide Review NO; Basophils Absolute Auto 100 /uL (0-100); Basophils Percent Auto 0.3 % (0-2); Eosinophils Absolute Auto 0 /uL (0-450); Eosinophils Percent Auto 0.1 % (2-4); Hemoglobin 11.8 g/dL (12.0-16.0); Lymphocytes Absolute Auto 1100 /uL (1100-4500); Lymphocytes Percent Auto 6.3 % (25-40); Mean Corpuscular HGB Conc 33.6 % (30-36); Mean Corpuscular Hemoglobin 30.5 PG (26-34); Mean Corpuscular Volume 90.7 fL (80-100); Monocytes Absolute Auto 200 /uL (0-900); Monocytes Percent Auto 1.4 % (3-14); Neutrophils Absolute Auto 15600 /uL (1500-7000); Neutrophils Percent Auto 91.9 % (50-75); Platelet Count 292 X10^3/uL (150-400); Red Blood Cell Count 3.86 X10^6/uL (4.0-5.2); Red Cell Distribution Width 13.7 % (11.6-14.8)
[2023-01-06] MEDS: KETOROLAC 30 MG/ML VIAL IV ×2 (15:51→22:26)
[2023-01-06] MEDS: diphenhydrAMINE 50 MG/ML VIAL 25 MG IV (18:00)
[2023-01-07] MEDS: ACETAMINOPHEN 325 MG TABLET 650 MG PO ×4 (04:36→22:37)
[2023-01-07] MEDS: KETOROLAC 30 MG/ML VIAL IV (04:36)
[2023-01-07 06:09] LABS: Hematocrit 30.2 % (36-46); Hemoglobin 10.3 g/dL (12.0-16.0)
--- NOTE | 2023-01-07 08:17 | P.PNOB_ITS ---
Subjective - OB Subjective Patient comments: no complaints, incisional pain and tolerating diet [place] baby status: doing well and nursing well [place] feeding status: exclusively breast feeding Date Patient Seen: 01/07/23 Time Patient Seen: 08:17 Interval history: Postop day # 1 status post repeat low-transverse section. Catheter removed this morning and she has voided once. Pain on the right side of the incision with movement. going well. Exam Vital Signs (past 8 hours): Oxygen Delivery Method Room Air Narrative Exam Narrative: Generally: Patient lying in bed, no acute distress Fundus: Firm at U -2 Incision: Clean dry and intact with Aquacel dressing Extremities: Trace edema, negative Homans Objective Labs 01/07/23 05:50 Labs: Laboratory Results - last 24 hr 01/06/23 01/07/23 11:10 05:50 WBC 17.0 H D RBC 3.86 L Hgb 11.8 L 10.3 L Hct 35.0 L 30.2 L MCV 90.7 MCH 30.5 MCHC 33.6 RDW 13.7 Plt Count 292 Neut % (Auto) 91.9 H D Lymph % (Auto) 6.3 L [place] % (Auto) 1.4 L Eos % (Auto) 0.1 L Baso % (Auto) 0.3 Neut # (Auto) 49527 H Lymph # (Auto) 1100 [place] # (Auto) 200 Eos # (Auto) 0 Baso # (Auto) 100 Assessment & Plan Plan day: 1 plan OB: routine postop care Comments: Possible discharge later today or tomorrow morning Time Spent With Patient Time: Total time spent is greater than 50% in coordination of care (as documented) at patient's floor/unit and/or counseling patient: Time with patient: less than 15 minutes
[2023-01-07] MEDS: DOCUSATE 100 MG CAPSULE PO (08:25)
[2023-01-07] MEDS: PRENATAL VIT,CALC/IRON/FOLIC 1 TABLET 1 TAB PO (08:26)
[2023-01-07] MEDS: IBUPROFEN 600 MG TABLET PO ×3 (11:05→22:36)
[2023-01-07] MEDS: OXYCODONE IR 5 MG TABLET PO (20:36)
[2023-01-07] MEDS: LANOLIN OINT 7 GM 1 APPLIC TOP (22:43)
[2023-01-08] MEDS: OXYCODONE IR 5 MG TABLET PO ×4 (01:38→11:53)
[2023-01-08] MEDS: IBUPROFEN 600 MG TABLET PO ×2 (04:56→11:23)
[2023-01-08] MEDS: ACETAMINOPHEN 325 MG TABLET 650 MG PO ×2 (04:57→11:23)
[2023-01-08 09:44] VITALS: TEMP 36.7
[2023-01-08] MEDS: DOCUSATE 100 MG CAPSULE PO (09:44)
[2023-01-08] MEDS: PRENATAL VIT,CALC/IRON/FOLIC 1 TABLET 1 TAB PO (09:44)
[2023-01-08 11:23] VITALS: TEMP 36.6
--- NOTE | 2023-01-08 11:53 | PM.OBDS.1 ---
Discharge Providers Provider Date of admission: 01/06/23 05:47 Discharge Date: 01/08/23 Primary care physician: Julio Albarran MD Consults: 01/06/23 10:17 Consult to [employer]yer Routine Comment: Discharge provider: Mary Granger MD Summary Hospital Course Date Patient Seen: 01/08/23 Time Patient Seen: 11:00 Diagnoses: 39 weeks gestation Previous section Repeat low-transverse section Hospital Course: Patient is a 32-year-old 2 para 2 who presented on January 06, 2023 for a scheduled repeat low-transverse section due to a previous section. She was 39 weeks gestation. She underwent this procedure without complication. Postoperatively she had some itching on the first postoperative day which was controlled with Benadryl. By postop day # 2, nursing was going well, bleeding tapering, pain well controlled, she was able to void without the catheter, and was ambulating independently. She is discharged home on postop day #2. Time Spent with Patient Time attestation: Total time spent providing and/or coordinating discharge services: Objective Labs 01/07/23 05:50 Exam Vital Signs (past 8 hours): - 01/08/23 09:44 01/08/23 11:23 Temperature 98.0 F 98 F Oxygen Delivery Method Room Air Narrative Exam Narrative: Generally: Patient is sitting up in bed, nursing infant, no acute distress Lungs: Clear to auscultation bilaterally Cardiovascular: Regular rate and rhythm Fundus: Firm at U -1 Incision: Clean dry and intact with Aquacel dressing Extremities: Trace edema, negative Homans Discharge Plan Discharge Plan Patient Disposition: Home Provider Discharge Comment: Call with fever, chills, or redness or drainage around the incision or bleeding vaginally more than a pad in an hour Ibuprofen 600 mg every 6 hours as needed Tylenol 650 mg every 6 hours as needed Continue vitamins Push oral fluids Discharge orders & Medications Prescriptions: New oxycodone 5 mg tablet 5 mg PO Q4H PRN (Reason: pain) Qty: 20 0RF Continued citalopram [Celexa] 10 mg tablet 10 mg PO DAILY Qty: 90 3RF biotin 5 mg capsule 5 mg PO DAILY prenat.vits,jack,xus-naba-womys Tablet 2 tab PO DAILY Discontinued Slow Fe 142 mg (45 mg iron) tablet extended release 142 mg PO DAILY Follow up/Referrals: Mary Granger MD [Physician] - 02/11/23 11:15 am Diet/Activity/Treatments Diet: Regular Skin/Wound/Dressing Care Report to your healthcare provider any signs of infection, such as:: chills, fever, increased pain, unusual drainage and unusual redness Visit Report/Discharge Packet Instructions: Women's Health Study Report: Depression, DI for , DI for Depression, DI for Prescription Opioid Use Stand Alone Forms: Discharge: Care, Patient Portal/API, Stroke Signs & Symptoms Discharge Data Primary Care Provider: Julio Albarran
== END 2023-01-08 11:55 | disposition home or self-care (01) | DRG 788 ==
PROVIDERS: Admitting Provider Obstetrics & Gynecology; PCP Family Medicine; Referring Provider Obstetrics & Gynecology; Visit Provider Obstetrics & Gynecology
PROC: (CPT 59514; principal; 2023-01-06 07:45)
DX: O34.211 Maternal care for low transverse scar from previous cesarean delivery (principal); O99.344 Other mental disorders complicating childbirth; F32.A Depression, unspecified; O99.824 Streptococcus B carrier state complicating childbirth; O75.89 Other specified complications of labor and delivery; L29.9 Pruritus, unspecified; Z67.10 Type A blood, Rh positive; Z37.0 Single live birth; Z3A.39 39 weeks gestation of pregnancy
CPT/HCPCS: 36415; 59050; 59510; 59514; 85014; 85018; 85025; 86850; 86900; 86901; J0690; J1100; J1200; J1885; J2274; J2405; J2590

== ENCOUNTER → 2024-01-13 09:11 | Outpatient (CLI) | payer BC, SELFPAY ==
--- NOTE | 2024-01-13 09:12 | DI.MRI.S_ITS ---
PROCEDURE: MR KNEE RT WO CON INDICATIONS: INTERNAL DERANGEMENT OF RT KNEE TECHNIQUE: Noncontrast sagittal PD fast spin echo and T2 fast spin echo with fat saturation, sagittal 3-D FLASH with fat saturation; coronal T1 spin echo and PD fast spin echo with fat saturation, and axial PD fast spin echo with fat saturation through the knee. COMPARISON: None. FINDINGS: Image quality: Excellent. Menisci: The medial and lateral menisci demonstrate normal morphology and internal signal. The meniscal root ligaments appear intact. Cruciate ligaments: The anterior and posterior cruciate ligaments appear intact. Medial structures: The medial collateral ligament appears mildly thickened. Visualized portions of the pes anserinus tendons appear normal. No abnormal bursal fluid. Lateral structures: The lateral collateral ligament, long and short heads of the biceps femoris tendon appear intact. The popliteus tendon appears normal. Iliotibial band appears normal. Anterior structures: The quadriceps and patellar tendons appear intact. Patellar alignment is normal. No femoral trochlear dysplasia or ventral trochlear prominence. No edema in the infrapatellar fat pad. Bones and cartilage: No bone marrow contusions or fractures. 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 Patellar cartilage is intact. Joint space: There is moderate knee joint fluid. No Tyler's cyst. Normal appearing synovial plicae are incidentally noted. IMPRESSION: 1. No evidence of focal meniscal tear. 2. The cruciate ligaments are intact. 3. Mild MCL sprain. 4. No marrow edema. No fracture or dislocation. 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 Moderate joint effusion, no loose bodies. Dictated by: Michael Hairston M.D. on 01/13/2024 at 17:13 Approved by: Michael Hairston M.D. on 01/13/2024 at 17:15
== END ==
LOC: MRI 09:11
PROVIDERS: PCP Family Medicine; Referring Provider Family Medicine; Visit Provider Family Medicine
DX: S83.411A Sprain of medial collateral ligament of right knee, initial encounter (principal); M23.91 Unspecified internal derangement of right knee; M25.461 Effusion, right knee; M94.261 Chondromalacia, right knee
CPT/HCPCS: 73721